=== PATIENT | female | born 1945 | race Caucasian/White ===

== ENCOUNTER 2018-03-25 23:53 | Emergency (ER) | payer MEDICARE, OTHER ==
[2018-03-26 00:08] VITALS: TEMP 98.2
[2018-03-26] MEDS ORDERED: DIPH,PERTUS(ACELL)TETVAC-LF 0.5 ML VIAL IM ONE (01:30)
[2018-03-26] MEDS ORDERED: LIDOCAINE 1% INJ 10MG/ML (20 ML MDV) SQ ONE (01:30)
--- NOTE | 2018-03-26 01:35 | ED ---
General Adult HPI - General Chief complaint: Head Injury Stated complaint: head injury Time Seen by Provider: 03/26/18 01:11 Source: patient, RN notes reviewed Mode of arrival: ambulatory Limitations: no limitations - History of Present Illness Initial comments: 73-year-old female with a past medical history of GERD, hyperlipidemia, hypertension presents to the emergency department for a chief complaint of head injury. Patient states she was trying to open her storm door when she slipped and fell backwards hitting the back of her head. Patient denies any headache at this time but does state the laceration hurts. Patient denies any loss of consciousness. Patient denies being on any blood thinners. Patient is not up- to-date on tetanus.Patient has no other complaints at this time including shortness of breath, chest pain, abdominal pain, nausea or vomiting, headache, or visual changes. - Related Data Allergies Allergy/AdvReac Type Severity Reaction Status Date / Time nitrofurantoin Allergy Swelling Verified 03/26/18 00:09 [From Macrobid] Sulfa (Sulfonamide Allergy Swelling Verified 03/26/18 00:09 Antibiotics) sulfamethoxazole Allergy Swelling Verified 03/26/18 00:09 [From Bactrim] trimethoprim [From Bactrim] Allergy Swelling Verified 03/26/18 00:09 Review of Systems ROS Statement: Those systems with pertinent positive or pertinent negative responses have been documented in the HPI. ROS Other: All systems not noted in ROS Statement are negative. Past Medical History Past Medical History: GERD/Reflux, Hyperlipidemia, Hypertension Additional Past Medical History / Comment(s): currently on antibiotics for bladder infection on doxy History of Any Multi-Drug Resistant Organisms: None Reported Past Surgical History: Hysterectomy Past Psychological History: No Psychological Hx Reported Smoking Status: Never smoker Past Alcohol Use History: Occasional Past Drug Use History: None Reported General Exam Limitations: no limitations General appearance: alert, in no apparent distress Head exam: Present: normocephalic. Absent: atraumatic (Patient does have a 3 cm laceration to the right parietal bone) Eye exam: Present: normal appearance. Absent: scleral icterus, conjunctival injection ENT exam: Present: normal exam, normal oropharynx, mucous membranes moist, TM's normal bilaterally, normal external ear exam Neck exam: Present: normal inspection, full ROM. Absent: tenderness, meningismus, lymphadenopathy Respiratory exam: Present: normal lung sounds bilaterally. Absent: respiratory distress, wheezes, rales, rhonchi, stridor Cardiovascular Exam: Present: regular rate, normal rhythm, normal heart sounds. Absent: systolic murmur, diastolic murmur, rubs, gallop, clicks Neurological exam: Present: alert, oriented X3, CN II-XII intact Expanded Patient oriented to: Present: person, place, time Speech: Present: fluid speech Cranial nerves: EOM's Intact: Normal, Tongue Deviation: Normal, Nystagmus: Normal, Facial Sensation: Normal Cerebellar function: Finger to Nose: Normal, Heel to [place]: Normal, Romberg: Normal Upper motor neuron: Pronator Drift: Normal Sensory exam: Upper Extremity Light Touch: Normal, Upper Extremity Pin Prick: Normal, Lower Extremity Light Touch: Normal, Lower Extremity Pin Prick: Normal Motor strength exam: RUE: 5, LUE: 5, RLE: 5, LLE: 5 Eye Response: (4) open spontaneously Motor Response: (6) obeys commands Verbal Response: (5) oriented Dariana Total: 15 Psychiatric exam: Present: normal affect (Patient is well-appearing. She is alert and responsive. She is pleasant and interactive.), normal mood Course Vital Signs 03/26/18 03/26/18 00:01 02:46 Temperature 98.2 F Pulse Rate 84 73 Respiratory 16 17 Rate Blood Pressure 141/84 147/66 O2 Sat by Pulse 96 99 Oximetry Procedures - Laceration Laceration #1 Consent Obtained: verbal consent Time Out Performed: Yes Indication: laceration Site: scalp Size (cm): 3 Description: linear Depth: simple, single layer Anesthetic Used: lidocaine 1% Anesthesia Technique: local infiltration Amount (mls): 4 Pre-repair: wound explored, irrigated extensively (Irrigated extensively with saline), deep structures intact Type of Sutures: other (Madisyn) Number of Sutures: 6 Patient Tolerated Procedure: well, no complications Medical Decision Making - Medical Decision Making 73-year-old presents to the emergency room for chief light of head injury. Patient fell backwards hitting her head on the cement. Patient denies loss of consciousness or blood thinners. Patient denies headache at this time but does state the area around the laceration is painful. Patient is not up-to-date on tetanus. On exam no focal neuro deficits. Patient is ambulatory with a normal gait. No fracture evident in the C-spine. No acute intracranial abnormality. Laceration is about 3 cm on the right parietal bone. This was cleaned thoroughly and stapled. Patient will follow up with primary care in 1-2 days. She will return if Fenton removed in 7-10 days. She will return if she has any worsening symptoms. Concussion precautions were given to her. Discussed with Dr Cisneros. Disposition Clinical Impression: Head injury Disposition: HOME SELF-CARE Condition: Good Instructions: Concussion (ED), Staple Care (ED) Additional Instructions: Please use Motrin or Tylenol for pain. Please have madisyn removed in 10 days. Please return immediately to the emergency department if you have any worsening symptoms. Is patient prescribed a controlled substance at d/c from ED?: No Referrals: Nonstaff,Physician [Primary Care Provider] - 1-2 days Time of Disposition: 03:18
--- NOTE | 2018-03-26 02:33 | CT ---
EXAMINATION TYPE: CT brain darrell hardy DATE OF EXAM: 03/26/2018 COMPARISON: None HISTORY: fall headache. Neck pain. CT DLP: 1356.50 mGycm Automated exposure control for dose reduction was used. TECHNIQUE: CT scan of the head and cervical spine are performed without contrast. FINDINGS: There is some cerebral cortical atrophy. There is no mass effect nor midline shift. There is no sign of intracranial hemorrhage. The calvarium is intact. There is mucosal thickening left max illary sinus. There is some straightening of the cervical spine. There is narrowing of disc spaces at C4-5 C5-6 wit h spurring of the endplates. The posterior elements are intact. Skull base appears intact. There is n o evidence of a fracture. IMPRESSION: Spondylotic changes in the cervical spine. No fracture seen. Cerebral atrophy. No acute intracranial abnormality. Left maxillary sinusitis.
[2018-03-26 02:46] VITALS: BP 147/66; PULSE 73; RESP 17
== END 2018-03-26 03:34 | disposition home or self-care (01) ==
LOC: EC 23:53
DX: S01.01XA Laceration without foreign body of scalp, initial encounter (principal); R40.2142 Coma scale, eyes open, spontaneous, at arrival to emergency department; R40.2252 Coma scale, best verbal response, oriented, at arrival to emergency department; R40.2362 Coma scale, best motor response, obeys commands, at arrival to emergency department; Z88.1 Allergy status to other antibiotic agents; Z88.2 Allergy status to sulfonamides; Z23 Encounter for immunization; W01.198A Fall on same level from slipping, tripping and stumbling with subsequent striking against other object, initial encounter; Y92.89 Other specified places as the place of occurrence of the external cause; Y93.89 Activity, other specified
CPT/HCPCS: 72125; 70450; 90715; 99283; 12002; 90471; J2001